=== PATIENT | male | born 2000 | race African-American/Black ===

== ENCOUNTER 2024-04-21 21:37 | Emergency (ER) | payer OTHER ==
[~2024-04-21] VITALS: Ht 170.2 cm; Wt 75.0 kg
[2024-04-21 21:44] VITALS: BP 108/69; PULSE 83; RESP 18; TEMP 36.8; O2SAT 100
== END 2024-04-22 01:35 | disposition left against medical advice (07) ==
LOC: ER 21:51
DX: R06.02 Shortness of breath (principal); E11.9 Type 2 diabetes mellitus without complications
CPT/HCPCS: 93005; 99283